=== PATIENT | male | born 1985 | race Caucasian/White ===

== ENCOUNTER → 2017-11-23 | Outpatient (CLI) | payer OTHER ==
[~2017-11-23] MED LIST: FISH OIL 1000MG1 CAP PO; MULTIPLE VITAMI1 CAP PO; PRINIVIL20 MG PO; ZOLOFT 100MG100 MG PO
== END ==
LOC: COL.CARD 11-22 08:30
DX: I10 Essential (primary) hypertension (principal); Z85.3 Personal history of malignant neoplasm of breast

== ENCOUNTER 2018-12-17 19:48 | Emergency (ER) | payer OTHER ==
[~2018-12-17] VITALS: Ht 182.9 cm; Wt 102.3 kg
[2018-12-17 19:52] VITALS: TEMP 97.9
[2018-12-17] MEDS ORDERED: BYSTOLIC10 MG PO (20:10)
[2018-12-17] MEDS ORDERED: LEXAPRO 10MG10 MG PO (20:11)
[2018-12-17 20:14] LABS: BASO % 0.3 % (0.0-2.0); EOS # 0.1 (0.0-0.7); EOS % 0.9 % (0-4.0); GRAN # 5.6 (1.4-6.5); GRAN % 62.7 % (42.2-75.2); HEMATOCRIT 42.2 % (42.0-52.0); LYMPH # 2.2 (1.2-3.4); LYMPH % 24.5 % (20.0-51.0); MEAN CELL VOLUME 90 fl (80.0-100.0); MEAN CORPUSCULAR HEMOGLOBIN 32 pg (27.0-31.0); MEAN CORPUSCULAR HGB CONC 36 g/dl (33.0-37.0); MEAN PLATELET VOLUME 10.8 fl (7.4-10.4); MONO % 11.3 % (1.7-9.3); PLATELET COUNT 234 K/mm3 (130-400); REDCELL DISTRIBUTION WIDTH-CV 12.5 % (11.5-14.5)
[2018-12-17 20:24] LABS: ALANINE AMINOTRANSFERASE 56 U/L (21-72); ALBUMIN 4.9 gm/dL (3.5-5.0); ALKALINE PHOSPHATASE 77 U/L (50-136); ANION GAP 14 mmol/L (7-16); AST,SGOT 46 U/L (15-37); BILIRUBIN,TOTAL 0.4 mg/dL (0.0-1.0); BLOOD UREA NITROGEN 16 mg/dL (9-20); CALCIUM 9.7 mg/dL (8.4-10.2); CARBON DIOXIDE 26 mmol/L (22-30); CHLORIDE 99 mmol/L (98-107); CREATININE, serum 0.95 (0.66-1.25); GLUCOSE 110 mg/dL (74-106); SODIUM 139 mmol/L (137-145); TOTAL PROTEIN 8.6 gm/dL (6.4-8.2)
[2018-12-17 20:34] LABS: PH 7 (5-8); SQUAMOUS EPITHELIAL None Seen /hpf; URINE APPEARANCE Clear; URINE BACTERIA None Seen /hpf; URINE BILIRUBIN Negative (NEGATIVE); URINE BLOOD Negative (NEGATIVE); URINE COLOR Straw; URINE GLUCOSE Negative (NEGATIVE); URINE KETONE Negative (NEGATIVE); URINE LEUKOCYTE ESTERASE Negative (NEGATIVE); URINE NITRATE Negative (NEGATIVE); URINE PROTEIN(semi-quant) Negative (NEGATIVE); URINE RBC None Seen /hpf; URINE UROBILINOGEN Negative (NEGATIVE); URINE WBC 0-2 /hpf
[2018-12-17 20:39] LABS: COLLECTION METHOD CLEAN CATCH
[2018-12-17 20:40] LABS: TROPONIN-I < 0.012 ng/mL (0.000-0.035)
[2018-12-17] MEDS ORDERED: CATAPRES 0.1MG0.1 MG PO (21:48)
[2018-12-17] MEDS ORDERED: PRINIVIL5 MG PO (21:48)
[2018-12-17] MEDS ORDERED: FLEXERIL 1010 MG/TAB PO (21:48)
[2018-12-17 22:04] VITALS: BP 149/89; PULSE 66
== END 2018-12-17 22:06 | disposition home or self-care (01) ==
LOC: COL.ER 19:48
PROVIDERS: Emergency Medicine
DX: I10 Essential (primary) hypertension (principal); R07.81 Pleurodynia; E78.5 Hyperlipidemia, unspecified; F41.9 Anxiety disorder, unspecified
CPT/HCPCS: J1885

== ENCOUNTER → 2021-05-25 | Outpatient (CLI) | payer OTHER ==
[~2021-05-25] MED LIST changes: +BYSTOLIC10 MG PO; +CATAPRES 0.1MG0.1 MG PO; +FLEXERIL 1010 MG/TAB PO; +LEXAPRO 10MG10 MG PO; +PRINIVIL5 MG PO
== END ==
LOC: COL.CARD 07:59
DX: I10 Essential (primary) hypertension (principal)